=== PATIENT | female | born 1960 | race Caucasian/White ===

== ENCOUNTER 2018-01-11 11:10 | Inpatient (IN) | payer MEDICAID ==
[~2018-01-11] VITALS: Ht 167.6 cm; Wt 104.0 kg
[2018-01-11] MEDS ORDERED: SODIUM CHLORIDE 0.9% 500 ML IV ONE (11:52)
[2018-01-11] MEDS ORDERED: CLINDAMYCIN 600MG IV 50 ML IV ONE (12:00)
[2018-01-11 12:28] LABS: Basophils # (auto) 0.1 uL; Basophils % (auto) 0.8 % (0.0-2.0); Eosinophils # (auto) 0.2 uL; Eosinophils % (auto) 1.7 % (0.0-7.0); Hemoglobin 13.2 g/dL (12.2-16.2); Lymphocytes # (auto) 2.3 uL; Lymphocytes % (auto) 22.4 % (10.0-50.0); Mean Corpuscular Hgb Conc. 33.8 g/dL (32.0-36.0); Mean Corpuscular Volume 85.7 fL (80.0-100.0); Monocytes # (auto) 0.9 uL; Monocytes % (auto) 8.9 % (0.0-12.0); Neutrophils # (auto) 6.6 uL; Neutrophils % (auto) 66.2 % (37.0-80.0); Nucleated Red Blood Cells % 0.1 %; Platelet Count (auto) 394 10^3/uL (140-450); Red Blood Cells 4.55 10^6/uL (4.0-5.20); Red Cell Distribution Width 13.7 % (11.8-14.3)
[2018-01-11 13:04] LABS: Albumin 3.5 g/dL (3.4-5.0); BUN/Creatinine Ratio 14.4; Bilirubin, Total 0.2 mg/dL (0.2-1.0); Calcium 9.4 mg/dL (8.5-10.1); Potassium 4.5 mmol/L (3.5-5.1); Total Protein 8.9 g/dL (6.4-8.2)
[2018-01-11 13:05] LABS: INR 0.87 (0.9-1.15); Partial Thromboplastin Time 27.8 sec (23.78-33.04); Prothrombin Time 9.4 sec (9.27-12.13)
[2018-01-11] MEDS ORDERED: MORPHINE SULFATE 4 MG/ML SYR/VIAL IV ONE (13:15)
[2018-01-11] MEDS ORDERED: ONDANSETRON HCL 4 MG/2 ML VIAL IV ONE (13:15)
[2018-01-11] MEDS ORDERED: cefTRIAXone 1GM/10ml IVPUSH 10 ML IV ONE (16:00)
[2018-01-11] MEDS ORDERED: VANCOMYCIN PER PHARMACY 0 MG IV SCH (16:00)
[2018-01-11] MEDS ORDERED: ACETAMINOPHEN 500 MG TAB PO PRN (16:00)
[2018-01-11] MEDS ORDERED: LORazepam 2MG/ML-1ML VIAL IV ONE (16:00)
[2018-01-11] MEDS ORDERED: DEXTROSE (50%) 50ML SYRG IV PRN (16:00)
[2018-01-11] MEDS ORDERED: ONDANSETRON HCL 4 MG/2 ML VIAL IV PRN (16:00)
[2018-01-11] MEDS: SODIUM CHLORIDE 0.9% 1,000 ML IV SCH (16:19)
[2018-01-11 16:48] VITALS: BP 145/87
[2018-01-11] MEDS: VANCOMYCIN 1GM/250ML 250 ML IV SCH (17:00)
[2018-01-11] MEDS: ACCU-CHEK COMFORT CURVE STRIP VI SCH ×2 (18:58→22:53)
[2018-01-11] MEDS: metroNIDAZOLE 500MG/100ML 100 ML IV SCH (19:27)
[2018-01-11] MEDS: InsuLIN REG 1unit/0.01ml Soln (100units/ml) SC SCH ×2 (19:28→22:54)
[2018-01-11] MEDS ORDERED: MORP15TA PO (19:36)
[2018-01-11] MEDS ORDERED: INSLANTI SC (19:36)
[2018-01-11] MEDS ORDERED: OXY10CRT PO (19:36)
[2018-01-11] MEDS ORDERED: METF-370 PO (19:38)
[2018-01-11] MEDS: HYDROcodone-ACET 5/325MG TAB PO PRN (20:09)
[2018-01-11 22:00] VITALS: BP 137/83
[2018-01-11] MEDS: MORPHINE SULF INJ 2 MG/ML SYRINGE 1ML IV PRN (22:49)
[2018-01-12] MEDS: metroNIDAZOLE 500MG/100ML 100 ML IV SCH ×4 (00:07→18:00)
[2018-01-12] MEDS: MORPHINE SULF INJ 2 MG/ML SYRINGE 1ML IV PRN ×5 (02:49→20:15)
[2018-01-12 03:45] LABS: Urine Bacteria NONE SEEN /hpf (None Seen); Urine Blood Negative /uL (Negative); Urine Budding Yeast OCCASIONAL /hpf (None Seen); Urine Specific Gravity 1.034 (1.001-1.035); Urine WBC <1 /hpf (0 - 5)
[2018-01-12] MEDS: VANCOMYCIN 1GM/250ML 250 ML IV SCH ×2 (04:58→17:00)
[2018-01-12] MEDS: SODIUM CHLORIDE 0.9% 1,000 ML IV SCH (04:58)
[2018-01-12 05:39] VITALS: BP 140/79
[2018-01-12 05:52] LABS: BUN/Creatinine Ratio 21.7; Calcium 8.6 mg/dL (8.5-10.1)
[2018-01-12 05:55] LABS: Bilirubin, Total 0.2 mg/dL (0.2-1.0); Total Protein 8.2 g/dL (6.4-8.2)
[2018-01-12] MEDS: ACCU-CHEK COMFORT CURVE STRIP VI SCH ×4 (06:10→21:48)
[2018-01-12] MEDS: InsuLIN REG 1unit/0.01ml Soln (100units/ml) SC SCH ×4 (06:11→21:50)
[2018-01-12 08:30] VITALS: BP_SYST 117
[2018-01-12] MEDS: cefTRIAXone 1GM/10ml IVPUSH 10 ML IV SCH (09:00)
[2018-01-12 12:30] VITALS: BP 123/59
[2018-01-12 17:07] VITALS: BP 152/80
[2018-01-12 22:27] VITALS: BP 151/85
[2018-01-13] MEDS: MORPHINE SULF INJ 2 MG/ML SYRINGE 1ML IV PRN ×3 (00:20→08:49)
[2018-01-13] MEDS: metroNIDAZOLE 500MG/100ML 100 ML IV SCH ×5 (00:20→23:33)
[2018-01-13 05:26] VITALS: BP 139/74
[2018-01-13 06:05] LABS: Albumin 2.6 g/dL (3.4-5.0); Calcium 8.2 mg/dL (8.5-10.1); Potassium 4.2 mmol/L (3.5-5.1)
[2018-01-13 06:08] LABS: Bilirubin, Total 0.2 mg/dL (0.2-1.0); Total Protein 7.1 g/dL (6.4-8.2)
[2018-01-13] MEDS: ACCU-CHEK COMFORT CURVE STRIP VI SCH ×4 (06:57→21:30)
[2018-01-13] MEDS: InsuLIN REG 1unit/0.01ml Soln (100units/ml) SC SCH ×4 (06:57→21:31)
[2018-01-13] MEDS ORDERED: VANCOMYCIN 1,250 MG in D5W 5% 250 ML IV SCH (07:00)
[2018-01-13] MEDS ORDERED: VANCOMYCIN 1GM/250ML 250 ML IV SCH (07:00)
[2018-01-13] MEDS: cefTRIAXone 1GM/10ml IVPUSH 10 ML IV SCH (08:49)
[2018-01-13] MEDS ORDERED: ATOR20TA50 PO (08:59)
[2018-01-13] MEDS ORDERED: EMPA1TAB PO (08:59)
[2018-01-13] MEDS ORDERED: OMEGCAP2 OR (08:59)
[2018-01-13] MEDS ORDERED: BENA20TA14 PO (08:59)
[2018-01-13 09:00] VITALS: BP 132/67
[2018-01-13] MEDS: HYDROcodone-ACET 5/325MG TAB PO PRN (10:37)
[2018-01-13 13:00] VITALS: BP 158/83
[2018-01-13] MEDS: OXYCODONE W/ ACETAMINOPHEN 5/325MG TABLET PO PRN ×2 (13:21→17:35)
[2018-01-13 17:00] VITALS: BP 149/80
[2018-01-13] MEDS: VANCOMYCIN 1GM/250ML 250 ML IV SCH ×2 (18:47→18:55)
[2018-01-13 20:00] VITALS: BP 152/91
[2018-01-13] MEDS: MORPHINE SULF 15mg ER tab PO SCH (21:30)
[2018-01-13] MEDS: INSULIN LANTUS (GLARGINE) 1 /0.01ml (100units/ml) SC SCH (21:31)
[2018-01-13 22:01] VITALS: BP 152/91
[2018-01-14] MEDS: OXYCODONE W/ ACETAMINOPHEN 5/325MG TABLET PO PRN ×4 (04:36→20:48)
[2018-01-14 05:05] VITALS: BP 116/70
[2018-01-14] MEDS: metroNIDAZOLE 500MG/100ML 100 ML IV SCH (06:09)
[2018-01-14] MEDS: ACCU-CHEK COMFORT CURVE STRIP VI SCH ×4 (06:30→21:52)
[2018-01-14] MEDS: InsuLIN REG 1unit/0.01ml Soln (100units/ml) SC SCH ×4 (06:31→21:53)
[2018-01-14 06:40] LABS: BUN/Creatinine Ratio 16.7; Bilirubin, Total 0.2 mg/dL (0.2-1.0); Calcium 8.8 mg/dL (8.5-10.1); Potassium 4.7 mmol/L (3.5-5.1); Total Protein 7.6 g/dL (6.4-8.2)
[2018-01-14] MEDS: cefTRIAXone 1GM/10ml IVPUSH 10 ML IV SCH (09:23)
[2018-01-14] MEDS: MORPHINE SULF 15mg ER tab PO SCH ×2 (09:23→21:52)
[2018-01-14 09:25] VITALS: BP 125/62
[2018-01-14 12:43] VITALS: BP 132/74
[2018-01-14] MEDS ORDERED: LIDOCAINE 2%HCL (LOCAL ANESTH.) INJ 10ml MDV ONE (13:34)
[2018-01-14] MEDS ORDERED: IODIXANOL 320MG/ML 100ML BTL IV ONE (13:34)
[2018-01-14] MEDS ORDERED: ANGIOMAX 250 MG VIAL IV ONE (13:35)
[2018-01-14] MEDS ORDERED: SODIUM CHL 0.9% 0 ML ONE (13:36)
[2018-01-14] MEDS ORDERED: fentaNYL CITRATE 100 MCG/2 ML VL ONE (13:36)
[2018-01-14] MEDS ORDERED: MIDAZOLAM HCL 1MG/1ML-2 ML VIAL ONE (13:36)
[2018-01-14] MEDS ORDERED: HYDROmorphone HCL 2 MG/ML VL ONE (14:00)
[2018-01-14 17:24] VITALS: BP 139/70
[2018-01-14] MEDS: LISINOPRIL 20 MG TAB PO SCH (18:24)
[2018-01-14] MEDS: VANCOMYCIN 1GM/250ML 250 ML IV SCH (18:25)
[2018-01-14 20:00] VITALS: BP 127/66
[2018-01-14] MEDS: INSULIN LANTUS (GLARGINE) 1 /0.01ml (100units/ml) SC SCH (21:53)
[2018-01-14 22:00] VITALS: BP 127/66
[2018-01-15] MEDS: OXYCODONE W/ ACETAMINOPHEN 5/325MG TABLET PO PRN ×5 (01:27→20:19)
[2018-01-15 05:00] VITALS: BP 118/64
[2018-01-15 06:34] LABS: Basophils # (auto) 0.1 uL; Basophils % (auto) 0.8 % (0.0-2.0); Eosinophils # (auto) 0.2 uL; Eosinophils % (auto) 2.5 % (0.0-7.0); Hematocrit 37.4 % (36.0-46.0); Hemoglobin 12.7 g/dL (12.2-16.2); Lymphocytes # (auto) 1.9 uL; Lymphocytes % (auto) 21.5 % (10.0-50.0); Mean Corpuscular Volume 85.2 fL (80.0-100.0); Monocytes # (auto) 0.6 uL; Monocytes % (auto) 7.2 % (0.0-12.0); Platelet Count (auto) 360 10^3/uL (140-450); Red Blood Cells 4.39 10^6/uL (4.0-5.20); Red Cell Distribution Width 13.4 % (11.8-14.3); White Blood Cell 8.8 10^3/uL (4.4-10.8)
[2018-01-15] MEDS: VANCOMYCIN 1GM/250ML 250 ML IV SCH (06:44)
[2018-01-15] MEDS: ACCU-CHEK COMFORT CURVE STRIP VI SCH ×4 (06:44→22:09)
[2018-01-15] MEDS: InsuLIN REG 1unit/0.01ml Soln (100units/ml) SC SCH ×4 (06:45→22:09)
[2018-01-15 06:59] LABS: BUN/Creatinine Ratio 23.4; Calcium 8.5 mg/dL (8.5-10.1); Magnesium 2.2 mg/dL (1.6-2.6); Potassium 4.4 mmol/L (3.5-5.1)
[2018-01-15 07:56] VITALS: BP_SYST 112; BP_SYST 154; BP_DIAS 68; BP_DIAS 69
[2018-01-15] MEDS: cefTRIAXone 1GM/10ml IVPUSH 10 ML IV SCH (09:56)
[2018-01-15] MEDS: MORPHINE SULF 15mg ER tab PO SCH ×2 (09:56→22:09)
[2018-01-15] MEDS: LISINOPRIL 20 MG TAB PO SCH (09:57)
[2018-01-15 13:25] VITALS: BP 123/73
[2018-01-15 17:14] VITALS: BP 132/72
[2018-01-15] MEDS: VANCOMYCIN 1,250 MG in D5W 5% 250 ML IV SCH (17:35)
[2018-01-15 20:00] VITALS: BP 107/57
[2018-01-15 22:09] VITALS: BP 107/57
[2018-01-15] MEDS: INSULIN LANTUS (GLARGINE) 1 /0.01ml (100units/ml) SC SCH (22:10)
[2018-01-16] MEDS: OXYCODONE W/ ACETAMINOPHEN 5/325MG TABLET PO PRN ×5 (00:54→20:22)
[2018-01-16] MEDS: VANCOMYCIN 1,250 MG in D5W 5% 250 ML IV SCH ×2 (05:02→17:13)
[2018-01-16 05:55] VITALS: BP 118/72
[2018-01-16] MEDS: InsuLIN REG 1unit/0.01ml Soln (100units/ml) SC SCH ×4 (06:46→22:18)
[2018-01-16] MEDS: ACCU-CHEK COMFORT CURVE STRIP VI SCH ×4 (06:46→22:18)
[2018-01-16 09:00] VITALS: BP 116/50
[2018-01-16] MEDS: cefTRIAXone 1GM/10ml IVPUSH 10 ML IV SCH (09:36)
[2018-01-16] MEDS: LISINOPRIL 20 MG TAB PO SCH (09:37)
[2018-01-16] MEDS: MORPHINE SULF 15mg ER tab PO SCH ×2 (11:11→22:09)
[2018-01-16 13:00] VITALS: BP 138/48
[2018-01-16 18:08] VITALS: BP 136/59
[2018-01-16 22:00] VITALS: BP 150/89
[2018-01-16] MEDS: INSULIN LANTUS (GLARGINE) 1 /0.01ml (100units/ml) SC SCH (22:19)
[2018-01-17 05:16] VITALS: BP 122/51
[2018-01-17] MEDS: VANCOMYCIN 1,250 MG in D5W 5% 250 ML IV SCH ×2 (05:30→17:00)
[2018-01-17] MEDS: OXYCODONE W/ ACETAMINOPHEN 5/325MG TABLET PO PRN ×5 (05:31→21:18)
[2018-01-17] MEDS: ACCU-CHEK COMFORT CURVE STRIP VI SCH ×4 (07:10→22:00)
[2018-01-17] MEDS: InsuLIN REG 1unit/0.01ml Soln (100units/ml) SC SCH ×4 (07:10→22:00)
[2018-01-17] MEDS: LISINOPRIL 20 MG TAB PO SCH (09:14)
[2018-01-17] MEDS: MORPHINE SULF 15mg ER tab PO SCH ×2 (09:15→22:54)
[2018-01-17 09:28] VITALS: BP 129/67
[2018-01-17 11:22] VITALS: BP 121/50
[2018-01-17 17:00] VITALS: BP 114/63
[2018-01-17 22:00] VITALS: BP 109/54
[2018-01-17] MEDS: INSULIN LANTUS (GLARGINE) 1 /0.01ml (100units/ml) SC SCH (22:00)
[2018-01-18 05:00] VITALS: BP 134/64
[2018-01-18] MEDS: OXYCODONE W/ ACETAMINOPHEN 5/325MG TABLET PO PRN ×4 (06:01→21:18)
[2018-01-18] MEDS: InsuLIN REG 1unit/0.01ml Soln (100units/ml) SC SCH ×4 (07:02→21:55)
[2018-01-18] MEDS: ACCU-CHEK COMFORT CURVE STRIP VI SCH ×4 (07:02→21:55)
[2018-01-18] MEDS: VANCOMYCIN 1,250 MG in D5W 5% 250 ML IV SCH ×2 (07:04→16:59)
[2018-01-18 09:00] VITALS: BP 106/76
[2018-01-18] MEDS: MORPHINE SULF 15mg ER tab PO SCH (09:58)
[2018-01-18] MEDS: LISINOPRIL 20 MG TAB PO SCH (09:58)
[2018-01-18 13:00] VITALS: BP 143/91
[2018-01-18 17:32] VITALS: BP 145/76
[2018-01-18] MEDS: INSULIN LANTUS (GLARGINE) 1 /0.01ml (100units/ml) SC SCH (21:55)
[2018-01-18 22:00] VITALS: BP 152/76
[2018-01-19] MEDS: MORPHINE SULF 15mg ER tab PO SCH ×2 (00:02→10:33)
[2018-01-19 00:36] LABS: Urine Bacteria NONE SEEN /hpf (None Seen); Urine Blood Negative /uL (Negative); Urine Specific Gravity 1.011 (1.001-1.035); Urine WBC <1 /hpf (0 - 5)
[2018-01-19] MEDS: OXYCODONE W/ ACETAMINOPHEN 5/325MG TABLET PO PRN ×3 (04:13→13:39)
[2018-01-19] MEDS: VANCOMYCIN 1,250 MG in D5W 5% 250 ML IV SCH ×2 (04:13→17:00)
[2018-01-19 05:22] VITALS: BP 109/72
[2018-01-19] MEDS: ACCU-CHEK COMFORT CURVE STRIP VI SCH ×2 (06:23→12:14)
[2018-01-19] MEDS: InsuLIN REG 1unit/0.01ml Soln (100units/ml) SC SCH ×2 (06:23→11:30)
[2018-01-19 06:52] LABS: Basophils # (auto) 0.1 uL; Basophils % (auto) 1.2 % (0.0-2.0); Eosinophils # (auto) 0.3 uL; Eosinophils % (auto) 3.9 % (0.0-7.0); Hematocrit 35.6 % (36.0-46.0); Hemoglobin 12.2 g/dL (12.2-16.2); Lymphocytes # (auto) 2.4 uL; Mean Corpuscular Hemoglobin 28.9 pg (28.0-32.0); Mean Corpuscular Hgb Conc. 34.2 g/dL (32.0-36.0); Mean Corpuscular Volume 84.7 fL (80.0-100.0); Monocytes # (auto) 0.7 uL; Monocytes % (auto) 7.7 % (0.0-12.0); Neutrophils # (auto) 5.5 uL; Neutrophils % (auto) 61.2 % (37.0-80.0); Nucleated Red Blood Cells % 0.1 %; Platelet Count (auto) 350 10^3/uL (140-450); Red Blood Cells 4.21 10^6/uL (4.0-5.20); Red Cell Distribution Width 13.8 % (11.8-14.3); White Blood Cell 9.1 10^3/uL (4.4-10.8)
[2018-01-19 06:58] LABS: INR 0.92 (0.9-1.15); Partial Thromboplastin Time 27.5 sec (23.78-33.04); Prothrombin Time 9.9 sec (9.27-12.13)
[2018-01-19 07:19] LABS: BUN/Creatinine Ratio 27.7; Calcium 8.6 mg/dL (8.5-10.1); Potassium 4.2 mmol/L (3.5-5.1)
[2018-01-19 09:44] VITALS: BP 111/62
[2018-01-19] MEDS: LISINOPRIL 20 MG TAB PO SCH (10:32)
[2018-01-19 12:30] VITALS: BP 119/62
[2018-01-19] MEDS ORDERED: CLINDAMYCIN 600MG IV 50 ML IV ONE ×2 (14:26→16:12)
[2018-01-19 17:55] VITALS: BP 147/72
== END 2018-01-19 19:17 | disposition home or self-care (01) | DRG 380 ==
LOC: ER 11:10 → OVERFLOW 11:11 → WEST WING 16:33
PROVIDERS: ATTEND Internal Medicine
PROC: B41G1ZZ Fluoroscopy of Left Lower Extremity Arteries using Low Osmolar Contrast (ICD-10-PCS; principal; 2018-01-14)
PROC: B41F1ZZ Fluoroscopy of Right Lower Extremity Arteries using Low Osmolar Contrast (ICD-10-PCS; 2018-01-14)
PROC: 0JBQ0ZZ Excision of Right Foot Subcutaneous Tissue and Fascia, Open Approach (ICD-10-PCS; 2018-01-19)
DX: E11.621 Type 2 diabetes mellitus with foot ulcer (principal); L97.519 Non-pressure chronic ulcer of other part of right foot with unspecified severity; E11.65 Type 2 diabetes mellitus with hyperglycemia; L03.031 Cellulitis of right toe; I10 Essential (primary) hypertension; E66.9 Obesity, unspecified; E78.5 Hyperlipidemia, unspecified; B95.61 Methicillin susceptible Staphylococcus aureus infection as the cause of diseases classified elsewhere; I25.10 Atherosclerotic heart disease of native coronary artery without angina pectoris; F17.210 Nicotine dependence, cigarettes, uncomplicated; M77.30 Calcaneal spur, unspecified foot; M19.90 Unspecified osteoarthritis, unspecified site; Z79.4 Long term (current) use of insulin; Z79.899 Other long term (current) drug therapy; Z80.1 Family history of malignant neoplasm of trachea, bronchus and lung; Z82.0 Family history of epilepsy and other diseases of the nervous system; Z82.49 Family history of ischemic heart disease and other diseases of the circulatory system; Z83.3 Family history of diabetes mellitus; Z68.37 Body mass index [BMI] 37.0-37.9, adult; Z88.0 Allergy status to penicillin
CPT/HCPCS: 36415; 71045; 73620; 73718; 75716; 80048; 80053; 80061; 80202; 81001; 82962; 83036; 83735; 85025; 85610; 85730; 86850; 86900; 86901; 87070; 87075; 87076; 87077; 87081; 87186; 87205; 93005; 93306; 93926; 94761; 96365; 96375; 99152; A6257; J0696; J1815; J2001; J2250; J2405; J3490; J7060; Q9967

== ENCOUNTER 2018-03-08 11:37 | Outpatient (CLI) | payer MEDICAID ==
[~2018-03-08] VITALS: Ht 167.6 cm; Wt 102.1 kg
[~2018-03-08 11:37] MED LIST: ATOR20TA50 PO; BENA20TA14 PO; EMPA1TAB PO; INSLANTI SC; METF-370 PO; MORP15TA PO; OXY10CRT PO
[2018-03-08 13:44] LABS: Basophils # (auto) 0.1 uL; Basophils % (auto) 0.7 % (0.0-2.0); Eosinophils # (auto) 0.2 uL; Eosinophils % (auto) 1.8 % (0.0-7.0); Hematocrit 39.6 % (36.0-46.0); Hemoglobin 13.3 g/dL (12.2-16.2); Lymphocytes # (auto) 3.4 uL; Lymphocytes % (auto) 37.9 % (10.0-50.0); Mean Corpuscular Hemoglobin 29.2 pg (28.0-32.0); Mean Corpuscular Hgb Conc. 33.7 g/dL (32.0-36.0); Mean Corpuscular Volume 86.5 fL (80.0-100.0); Monocytes # (auto) 0.5 uL; Neutrophils # (auto) 4.8 uL; Neutrophils % (auto) 53.6 % (37.0-80.0); Nucleated Red Blood Cells % 0.1 %; Platelet Count (auto) 337 10^3/uL (140-450); Red Blood Cells 4.57 10^6/uL (4.0-5.20); Red Cell Distribution Width 14.6 % (11.8-14.3); White Blood Cell 8.9 10^3/uL (4.4-10.8)
[2018-03-08 13:46] LABS: Urine Bacteria NONE SEEN /hpf (None Seen); Urine Blood Negative /uL (Negative); Urine Mucus FEW (None Seen); Urine Specific Gravity 1.029 (1.001-1.035); Urine WBC 2 /hpf (0 - 5)
[2018-03-08 13:57] LABS: INR 0.9 (0.9-1.15); Partial Thromboplastin Time 27.7 sec (23.78-33.04); Prothrombin Time 9.7 sec (9.27-12.13)
[2018-03-08 14:03] LABS: Albumin 3.7 g/dL (3.4-5.0); BUN/Creatinine Ratio 28.6; Bilirubin, Total 0.2 mg/dL (0.2-1.0); Calcium 9.1 mg/dL (8.5-10.1); Potassium 4.1 mmol/L (3.5-5.1)
== END 2018-03-08 11:47 | disposition home or self-care (01) ==
LOC: LAB 11:37 → EDSTATUS 03-09 11:44
PROVIDERS: ATTEND Podiatrist Foot & Ankle Surgery
DX: M20.42 Other hammer toe(s) (acquired), left foot (principal); M79.675 Pain in left toe(s); E11.9 Type 2 diabetes mellitus without complications; F32.9 Major depressive disorder, single episode, unspecified; I10 Essential (primary) hypertension; F41.9 Anxiety disorder, unspecified; F17.210 Nicotine dependence, cigarettes, uncomplicated; E66.9 Obesity, unspecified; Z68.36 Body mass index [BMI] 36.0-36.9, adult; Z79.899 Other long term (current) drug therapy; Z98.890 Other specified postprocedural states; Z79.4 Long term (current) use of insulin; Z79.84 Long term (current) use of oral hypoglycemic drugs; Z88.0 Allergy status to penicillin; Z80.1 Family history of malignant neoplasm of trachea, bronchus and lung; Z82.49 Family history of ischemic heart disease and other diseases of the circulatory system; Z83.3 Family history of diabetes mellitus
CPT/HCPCS: 36415; 80053; 81001; 85025; 85610; 85730

== ENCOUNTER 2018-08-12 10:03 | Emergency (ER) | payer MEDICAID ==
[~2018-08-12] VITALS: Ht 167.6 cm; Wt 103.0 kg
[~2018-08-12 10:03] MED LIST changes: -BENA20TA14 PO; -MORP15TA PO
[2018-08-12 10:51] LABS: Basophils # (auto) 0.1 uL; Basophils % (auto) 0.8 % (0.0-2.0); Eosinophils # (auto) 0 uL; Eosinophils % (auto) 0.3 % (0.0-7.0); Hematocrit 43.9 % (36.0-46.0); Hemoglobin 14.3 g/dL (12.2-16.2); Lymphocytes # (auto) 1.8 uL; Lymphocytes % (auto) 13.7 % (10.0-50.0); Mean Corpuscular Hemoglobin 28.3 pg (28.0-32.0); Mean Corpuscular Hgb Conc. 32.7 g/dL (32.0-36.0); Mean Corpuscular Volume 86.6 fL (80.0-100.0); Monocytes # (auto) 0.5 uL; Monocytes % (auto) 4.2 % (0.0-12.0); Neutrophils # (auto) 10.4 uL; Nucleated Red Blood Cells % 0.1 %; Platelet Count (auto) 385 10^3/uL (140-450); Red Blood Cells 5.07 10^6/uL (4.0-5.20); Red Cell Distribution Width 14.6 % (11.8-14.3); White Blood Cell 12.9 10^3/uL (4.4-10.8)
[2018-08-12 11:08] LABS: Albumin 3.8 g/dL (3.4-5.0); Anion Gap 7 (5-15); Blood Urea Nitrogen 22 mg/dL (7-18); Calcium 9.1 mg/dL (8.5-10.1); Carbon Dioxide 26 mmol/L (21-32); Chloride 102 mmol/L (98-107); Glucose 225 mg/dL (74-106); Lipase 199 U/L (73-393); Potassium 4.1 mmol/L (3.5-5.1); Sodium 135 mmol/L (136-145)
[2018-08-12 11:13] LABS: Alanine Aminotransferase 26 U/L (13-56); Alkaline Phosphatase 116 U/L (45-117); Aspartate Aminotransferase 20 U/L (15-37); BUN/Creatinine Ratio 29.7; Bilirubin, Total 0.4 mg/dL (0.2-1.0); GFR African American 104 mL/min; GFR Non-African American 86 mL/min; Total Protein 8.7 g/dL (6.4-8.2)
[2018-08-12 14:05] VITALS: BP 152/65
== END 2018-08-12 14:07 | disposition home or self-care (01) ==
LOC: ER 10:03
DX: R10.11 Right upper quadrant pain (principal); R11.2 Nausea with vomiting, unspecified; R19.7 Diarrhea, unspecified; E11.9 Type 2 diabetes mellitus without complications; E78.5 Hyperlipidemia, unspecified; I10 Essential (primary) hypertension; F17.210 Nicotine dependence, cigarettes, uncomplicated; Z88.0 Allergy status to penicillin
CPT/HCPCS: 36415; 76705; 80053; 83690; 84484; 85025; 93005